=== PATIENT | female | born 1950 | race Caucasian/White ===

== ENCOUNTER 2016-06-15 08:40 | Emergency (ER) | payer MEDICARE, OTHER | END 2016-06-15 10:40 | disposition home or self-care (01) | LOC: ER 08:40 | DX: G44.209 Tension-type headache, unspecified, not intractable (principal); Z79.899 Other long term (current) drug therapy; Z91.030 Bee allergy status ==

== ENCOUNTER 2016-09-20 13:05 | Emergency (ER) | payer MEDICARE, OTHER | END 2016-09-20 17:48 | disposition home or self-care (01) | LOC: ER 13:05 | DX: T63.461A Toxic effect of venom of wasps, accidental (unintentional), initial encounter (principal); E03.9 Hypothyroidism, unspecified; K21.9 Gastro-esophageal reflux disease without esophagitis; F41.9 Anxiety disorder, unspecified; Z79.899 Other long term (current) drug therapy; Z91.030 Bee allergy status; Z85.038 Personal history of other malignant neoplasm of large intestine | CPT/HCPCS: 36415; 96361; 96374; 96375 ==